=== PATIENT | female | born 1940 | race Caucasian/White ===

== ENCOUNTER 2023-03-04 09:21 | Outpatient (RCR) | payer MEDICARE, BC, SELFPAY | END 2023-03-05 14:09 | disposition home or self-care (01) | LOC: PT 09:21 | PROVIDERS: PCP Internal Medicine; Visit Provider Nurse Practitioner Family | DX: M25.511 Pain in right shoulder (principal); M19.011 Primary osteoarthritis, right shoulder; M75.41 Impingement syndrome of right shoulder | CPT/HCPCS: 97110; 97161 ==

== ENCOUNTER 2025-08-09 12:46 | Outpatient (OUT) | payer MEDICARE, BC, SELFPAY ==
--- OUTSIDE RECORDS SUMMARY | 2025-08-07 13:40 | XMS_ITS | Encounter Summary ---
Author Organization [facility] Address [address] [place] [address] Care Team Providers Care Crime Scene Technician Name Role Phone Lucinda Moreau DO Primary Care Provider [phone] Reason for Visit * ReasonCommentsEar ProblemLT side Hearing loss/ OM/TM Rupture Encounter Details DateTypeDepartmentCare Team (Latest Contact Info)Ldetawfcllx68/01/2025 1:40 PM ESTOffice Visit [facility] [place] [facility] [address] [facility] [address] [place] [address] Karen Mcclendon MD 112 [facility] [address] [place] [address] OME (otitis media with effusion), left (Primary Dx); Barotrauma, initial encounter Social History Tobacco UseTypesPacks/DayYears UsedDateSmoking Tobacco: NeverSmokeless Tobacco: NeverAlcohol UseStandard Drinks/WeekCommentsYes0 (1 standard drink = 0.6 oz pure alcohol)CommentsUnknownSex and Gender InformationValueDate RecordedSex Assigned at BirthNot on fileLegal HsnCmcsmr25/15/2023 6:48 PM EDTGender Identity Not on fileSexual OrientationNot on filedocumented as of this encounter Last Filed Vital Signs Vital SignReadingTime TakenCommentsBlood Pfqzdwjy592/6308/07/2025 1:26 PM EST Dsiwj9511 1:26 PM ESTTemperature--Respiratory Rate--Oxygen Saturation-- Inhaled Oxygen Concentration--Cvkaha18.9 kg (154 lb)08/07/2025 1:26 PM ESTHeight 162.6 cm (5' 4 )08/07/2025 1:26 PM ESTBody Mass Index26.43110/08/2024 1:26 PM EST documented in this encounter Progress Notes * Karen Mcclendon MD - 08/07/2025 1:40 PM EST Subjective Patient ID: Mohinder Tinajero is a 85 y.o. female who presents for Ear Problem (LT side Hearing loss/ OM/TM Rupture) Pt reports left hearing loss since flying one month ago. Had a URI at the time. Had severe left earpain upon descending. No otorrhea. Tx with augmentin and cipro drops. No trouble flying in the past. Leaving for [place] in 3 weeks for the winter Review of Systems All other systems reviewed and are negative. Family History[1] Active Ambulatory Problems Diagnosis Date Noted Arthritis of glenohumeral joint 02/08/2023 Arthritis of left wrist 02/08/2023 Anxiety 07/31/2025 Arrhythmia 07/31/2025 Claudication 07/31/2025 Hypercholesterolemia 07/24/2022 Lower extremity edema 07/31/2025 Nonsmoker 07/31/2025 Osteoarthritis, knee 07/31/2025 BMI 26.0-26.9,adult 07/31/2025 Paroxysmal atrial tachycardia (HCC) 07/20/2020 Paroxysmal tachycardia (HCC) 07/27/2023 PAD (peripheral artery disease) 07/31/2025 RLS (restless legs syndrome) 07/31/2025 Symptomatic varicose veins of both lower extremities 07/31/2025 Resolved Ambulatory Problems Diagnosis Date Noted No Resolved Ambulatory Problems Past Medical History: Diagnosis Date Arthritis Beltrán's cyst Bursitis of hip Ear problems Lumbosacral disc disease Tear of meniscus of knee Surgical History[2] Allergies[3] Medications Ordered Prior to Encounter[4] Objective Last Recorded Vitals Vitals: 08/07/25 1326 BP: 161/63 Pulse: 60 ENT Physical Exam Constitutional Appearance: patient appears well-developed, well-nourished and well-groomed, Head and Face Appearance: head appears normal and face appears atraumatic; Ear Ear Canals: right ear canal normal; left ear canal normal; Tympanic Membranes: right tympanic membrane normal; Nose External Nose: nares patent bilaterally; external nose normal; Internal Nose: septum normal; Oral Cavity/Oropharynx Tongue: normal; Oral mucosa: normal; Hard palate: normal; Soft palate: normal; Tonsils: normal; Neck Neck: neck normal; neck palpation normal; Thyroid: thyroid normal; Respiratory Inspection: breathing unlabored; normal breathing rate; Auscultation: breath sounds are clear; Cardiovascular Inspection: extremities are warm and well perfused; no peripheral edema present; Auscultation: regular rate and rhythm; Assessment/Plan Diagnoses and all orders for this visit: OME (otitis media with effusion), left - fluticasone (Flonase) 50 MCG/ACT nasal spray; 2 sprays on the left twice daily. Shake gently. Before first use, prime pump. After use, clean tip and replace cap. - predniSONE (Deltasone) 20 MG tablet; Take 1 tablet (20 mg) by mouth in the morning and 1 tablet (20 mg) before bedtime. Do all this for 6 days. Barotrauma, initial encounter Pt has OME due to otic barotrauma. Tx with flonase and prednisone. Will need an audio in 2 months and a tube if the effusion fails to resolve. This can be done in [place], or she can return here. I will provide flight precautions. [1] Family History Problem Relation Name Age of Onset Cancer Mother Quiana Savage Cancer Father Shady Savage Cancer Sister Tanya Wagoner Diabetes Brother Shady Savage [2] Past Surgical History: Procedure Laterality Date APPENDECTOMY CATARACT EXTRACTION Bilateral 2010 HYSTERECTOMY 1975 KNEE SURGERY Bilateral [id number] KNEE SURGERY Right menisectomy [address] Bowling KNEE SURGERY Left menisectomy Dr. Guadalupe LAPAROTOMY SALPINGO OOPHORECTOMY MENISCECTOMY MOUTH SURGERY 2020 implant [3] Allergies Allergen Reactions Shellfish Allergy Anaphylaxis Sulfa Antibiotics Rash [4] Current Outpatient Medications on File Prior to Visit Medication Sig Dispense Refill ALPRAZolam (Xanax) 0.25 MG tablet Take 0.125 mg by mouth every 8 (eight) hours if needed aspirin 81 MG EC tablet Take 81 mg by mouth atenolol (Tenormin) 100 MG tablet 1 (one) time each day at the same time. Cholecalciferol (VITAMIN D3 PO) 5,000 Int'l Units/day. ciprofloxacin (Ciloxan) 0.3 % ophthalmic ointment See Instructions, 3.5 gm, Refill(s) 0, 10 drops in left ear twice daily., [facility], 162.5, cm, 07/20/25 10:32:00 EST, Height/Length Dosing, 69.9, kg, 07/20/25 10:32:00 EST, Weight Dosing EPINEPHrine (Epipen) 0.3 MG/0.3ML injection syringe Inject 0.3 mg into the shoulder, thigh, or buttocks Daily as needed. Fiber Adult Gummies 2 g chewable tablet loratadine (Claritin) 10 MG tablet Take 10 mg by mouth LUTEIN PO MAGNESIUM CITRATE PO Methylsulfonylmethane (MSM) 1000 MG tablet Multiple Vitamins-Minerals (Multi For Her 50+) tablet nystatin (Mycostatin) 809026 UNIT/GM powder Apply 1 application topically in the morning and 1 application before bedtime. zoster vaccine-recombinant adjuvanted (Shingrix) 50 MCG/0.5ML vaccine diclofenac sodium 1 % gel Apply 2 g topically in the morning and 2 g at noon and 2 g in the eveningand 2 g before bedtime. (Patient not taking: Reported on 08/07/2025) No current facility-administered medications on file prior to visit. documented in this encounter Plan of Treatment DateTypeDepartmentCare Team (Latest Contact Info)Xjzcjkbyysr77/02/2026 9:30 AM ESTClinical Support [facility] [place] [facility] 112 [facility] 130 [place] [address] Haily Mendez, [facility] [address] [facility] [place] [address] 11/07/2025 11:20 AM ESTOffice Visit [facility] [place] [facility] [address] [facility] [address] [place] [address] Karen Mcclendon MD 112 [facility] 130 [place] [address] 12/12/2025 10:30 AM EDTOffice Visit [facility] [address] [place] [address] Fred Menjivar DO [address] [place] [address] documented as of this encounter Visit Diagnoses Diagnosis OME (otitis media with effusion), left- Primary Barotrauma, initial encounter documented in this encounter Care Teams Team MemberRelationshipSpecialtyStart DateEnd Date Lucinda Moreau DO [facility] 9[facility] [address] [place] [address] PCP - GeneralInternal Kgztykfl30/1/25documented as of this encounter
--- OUTSIDE RECORDS SUMMARY | 2025-08-09 12:49 | XMS_ITS | Clinical Summary ---
Author Organization [employer] [facility] tem Address [id number] [place] [address] Care Team Providers Care Farm Demonstrator Name Role Phone Unavailable Primary Care Provider Unavailabl e Allergies Active AllergyReactionsCriticalityNoted DateCommentsShellfish DerivedAnaphylaxis High08/15/2012Sulfa (Sulfonamide Antibiotics)08/15/2012 Medications MedicationSigDispense QuantityRefillsLast FilledStart DateEnd DateStatus VIT D3-VIT C-WAWGQYLSK-QHZO ORAL Take 50,000 Units by mouth once a week.Active magnesium oxide (MAGOX) 400 mg tablet Take 1 tablet (400 mg total) by mouth in the morning.Active EPINEPHrine (EPIPEN) 0.3 mg/0.3 mL auto-injector Inject 0.3 mL (0.3 mg total) into the appropriate muscle as needed (as needed). 1 each 06/02/2023ctive ALPRAZolam (XANAX) 0.25 mg tablet Indications:AnxietyTake 0.5 tablets (0.125 mg total) by mouth every 8 (eight) hours as needed for anxiety. 15 tablet 07/27/2023ctive atenoloL (TENORMIN) 100 mg tablet TAKE ONE TABLET BY MOUTH ONCE DAILY 90 tablet ctive Active Problems ProblemNoted DateDiagnosed DateParoxysmal sbbkklrgmwy97/20/2023 Mfzmnhtqwbxtfxrzgqjt49/17/2022aroxysmal atrial dzbxltuayie51/13/2020Anxiety Immunizations ImmunizationAdministration DatesNext NlmG7C8 Inj Preservative Free10/31/2009 Hepatitis A011/30/2017,06/01/2017Influenza (IM) Preservative Free06/28/2014 Influenza, High-dose, Dgocwvjxhwzo36/02/2021Influenza, Im Trivalent Preservative 07/04/2013Influenza, Injectable, Ztjlagjycqip02/20/2015Influenza, Trivalent, Npjthtadmh31/11/2017,07/07/2016Influenza, Umowlsiapoq85/09/2020,05/26/2019, 06/22/2018,06/17/2017Pneumococcal Conjugate 13-Wulfso8802/11/2017Pneumococcal Rvhubkbryfdawc49/14/2017,06/18/2011Tdap06/01/2017,11/06/2015Zoster Vaccine Cafcocoupyd95/31/2020,07/07/2020Zoster, unspecified cccogxfgyrh01/31/2020 Family History Medical HistoryRelationNameCommentsStomach cancerFatherCancerMotherGALLBLADDER DementiaMotherBreast cancerSisterEndometrial cancerSisterlumpectomy needed RelationNameStatusCommentsFatherMotherSister Social History Tobacco UseTypesPacks/DayYears UsedDateSmoking Tobacco: NeverSmokeless Tobacco: Never Tobacco Cessation:Counseling Given: No Alcohol UseStandard Drinks/WeekCommentsYes0 (1 standard drink = 0.6 oz pure alcohol)Social Connection and Isolation PanelAnswerDate RecordedIn a typical week, how many times do you talk on the phone with family, friends, or neighbors?More than three times a week07/20/2021How often do you get together with friends or relatives?Once a week07/20/2021How often do you attend voodoo or gnosticism services?More than 4 times per year1Do you belong to any clubs or organizations such as voodoo groups, unions, fraternal or athletic noemi ups, or school groups?Yes07/20/2021How often do you attend meetings of the clubs or organizations you belong to?More than 4 times per year07/20/2021re you , , , , never , or living with a partner? Living with gtqqtwl6007/20/2021UDIT-CAnswerDate RecordedQ1: How often do you have a drink containing alcohol?4 or more times a week07/20/2021Q2: How many drinks containing alcohol do you have on a typical day when you are drinking?1 or 2 07/20/2021Q3: How often do you have six or more drinks on one occasion?Never 07/20/2021Overall Financial Resource Strain (CARDIA)AnswerDate RecordedHow hard is it for you to pay for the very basics like food, housing, medical care, and heating?Not hard at all07/20/2021HQ-2AnswerDate RecordedTotal Tmhmr016 [facility] [place] of Occupational Health - Occupational Stress Questionnaire AnswerDate RecordedDo you feel stress - tense, restless, nervous, or anxious, or unable to sleep at night because yourmind is troubled all the time - these days? Not at all07/20/2021xercise Vital SignAnswerDate RecordedOn average, how many days per week do you engage in moderate to strenuous exercise (like a brisk wal k)?3 days07/20/2021On average, how many minutes do you engage in exercise at this level?30 min07/20/2021RAPARE - TransportationAnswerDate RecordedIn the past 12 months, has lack of transportation kept you from medical appointments or from getting medications?No07/20/2021In the past 12 months, has lack of transportation kept you from meetings, work, or from getting things needed for daily living?No07/20/2021hildcareAnswerDate RecordedDo problems getting child development associate teacher make it difficult for you to work or study?No07/20/2021mploymentAnswerDate RecordedDo you need help finding a local career center and/or a training program?No07/20/2021Hunger ScreeningAnswerDate RecordedWithin the past 12 months we worried whether our food would run out before we got money to buy more.Never True07/27/2023Within the past 12 months the food we bought just didn't last and we didn't have money to get more.Never True07/27/2023urpose - LifeAnswerDate RecordedI have a purpose and direction in my life.Strongly Agree07/20/2021 EducationAnswerDate RecordedWhat is the highest level of school you have completed or the highest degree you have received?Bachelor's degree (e.g., BA, AB, BS)07/20/2021CommentsNoSex and Gender InformationValueDate Recorded Sex Assigned at BirthNot on fileLegal QjiSeyxqz29/04/2015 11:58 AM EDTGender IdentityNot on fileSexual OrientationNot on file Last Filed Vital Signs Vital SignReadingTime TakenCommentsBlood Mwhutrhs023/5807/27/2023 1:38 PM EST Nttql667907/27/2023 1:38 PM IXRSofowtribjw89.9 ??C (96.7 ??F)07/22/2021 1:41 PM ESTRespiratory Rate--Oxygen Saturation--Inhaled Oxygen Concentration--Mdqaip90.6 kg (160 lb)07/27/2023 1:38 PM MEIVwyieb979.6 cm (5' 4 )07/27/2023 1:38 PM EST Body Mass Index27.4607/27/2023 1:38 PM EST Plan of Treatment Health MaintenanceDue DateLast DoneCommentsRSV ( or age 60+ yrs) (1 - 1- dose 75+ series)02/07/2016Depression Dyyrfhqwe54Fall Risk Coocizjls16Medicare Annual Wellness Visit, 07/24/2022, 07/22/2021, Additional history existsTobacco Otbigzwdl46/20/2024 07/27/2023OVID-19 Vaccine ( season), 06/02/2022, 02/12/2022, Additional history existsInfluenza Awdtxdw00, 06/02/2022, 06/08/2021, Additional history existsDTaP,Tdap and Td Vaccines (3 - Td or Tdap)7006/01/2017, 11/06/2015Zoster (Shingles) VaccineCompleted 09/06/2020, 07/07/2020, 07/07/2020 Medical Devices Not on file Insurance Care Teams Team MemberRelationshipSpecialtyStart DateEnd Date Erin Celaya RN CCM Nurse - SignalLam02/10/24
--- OUTSIDE RECORDS SUMMARY | 2025-08-09 12:49 | XMS_ITS | Encounter Summary ---
Author Organization [facility] Address [address] [place] [address] Care Team Providers Care Collar Cutter Name Role Phone Lucinda Moreau DO Primary Care Provider [phone] Encounter Details DateTypeDepartmentCare Team (Latest Contact Info)Llmperpeicz91/01/2025amboo flowsheet [facility] [place] [facility] [address] [place] [address] [place] [address] Karen Mcclendon MD [address] [place] [address] [place], [place] [phone] Social History Tobacco UseTypesPacks/DayYears UsedDateSmoking Tobacco: NeverSmokeless Tobacco: NeverAlcohol UseStandard Drinks/WeekCommentsYes0 (1 standard drink = 0.6 oz pure alcohol)CommentsUnknownSex and Gender InformationValueDate RecordedSex Assigned at BirthNot on fileLegal SgyQeiyqv34/15/2023 6:48 PM EDTGender IdentityNot on fileSexual OrientationNot on filedocumented as of this encounter Plan of Treatment DateTypeDepartmentCare Team (Latest Contact Info)Rdynxdmhdqs23/02/2026 9:30 AM ESTClinical Support [facility] [place] [facility] [address] [place] [address] [place] [address] Haily [place], [facility] [address] [place] [address] 11/07/2025 11:20 AM ESTOffice Visit [facility] [place] [facility] [address] [facility] [address] [place] [address] Karen Mcclendon MD [address] [place] [address] [place] [address] 12/12/2025 10:30 AM EDTOffice Visit [facility] [address] [place] [address] Fred Menjivar DO [address] [place] [address] documented as of this encounter Visit Diagnoses Not on filedocumented in this encounter Care Teams Team MemberRelationshipSpecialtyStart DateEnd Date Lucinda Moreau DO [address] [place] [address] [address] [place] [id number] PCP - GeneralInternal Qqfwmgmk92/1/25documented as of this encounter
--- OUTSIDE RECORDS SUMMARY | 2025-08-09 12:49 | XMS_ITS | Clinical Summary ---
Author Organization [facility] Address [address] [place] [address] Care Team Providers Care Laboratory Director Name Role Phone Unavailable Primary Care Provider Unavailabl e Allergies Active AllergyReactionsCriticalityNoted DateCommentsShellfish DerivedAnaphylaxis High06/20/2021ulfa (Sulfonamide Antibiotics)Rash05/20/2018 Medications MedicationSigDispense QuantityRefillsLast FilledStart DateEnd DateStatus atenolol (TENORMIN) 100 mg tablet TAKE 1 TABLET (100 MG TOTAL) BY MOUTH DAILY.05/15/2021ctive triamcinolone acetonide (KENALOG) 0.1 % cream APPLY TO RIGHT EYELIDS THREE TIMES A DAY FOR 7 DAYS03/20/2021ctive EPINEPHrine (EPIPEN) 0.3 mg/0.3 mL auto-injector Inject 0.3 mg intramuscularly at bedtime as needed.Active ALPRAZolam (XANAX) 0.25 mg tablet Take 0.125 mg by mouth three times daily as needed.07/20/2020Active Active Problems No known active problems Social History Tobacco UseTypesPacks/DayYears UsedDateSmoking Tobacco: Never AssessedArea Deprivation IndexAnswerDate RecordedNational Score (1-100), lower number is lower riskNot on file06/20/2021tate Score (1-10), lower number is lower riskNot on file06/20/2021ata from: https://www.neighborhoodatlas.medicine.[facility].edu/. Last address used for calculationNot on file06/20/2021CommentsUnknownSex and Gender InformationValueDate RecordedSex Assigned at BirthNot on fileLegal PhxIwqkju67/16/2018 2:09 PM EDTGender IdentityNot on fileSexual OrientationNot on file Plan of Treatment Health MaintenanceDue DateLast DoneCommentsAnxiety Vviloxwxa61/02/1959Depression Fjiklprdp92/02/1959Bone Density Ltpazwist80/02/2006RSV Vaccine (1 - 1-dose 75+ series)02/07/2016Diabetes Xpfbgoawd67/12/2019, 03/22/2018Advance Directive Fxzidaveij37/01/2025Covid-19 Vaccine (2024- season)2025 Influenza Vaccine (#1)/05/2020, 05/26/2019, 06/22/2018, Additional history existsDTaP,Tdap,Td Vaccine (3 - Td or Tdap), 11/06/2015Pneumococcal Vaccine: 50+Zthrrrscx03/14/2017, 02/11/2017, 06/18/2011 Shingrix OlwzlnsYwtqsqvzk40/31/2020, 07/07/2020 Insurance
--- OUTSIDE RECORDS SUMMARY | 2025-08-09 12:49 | XMS_ITS | Encounter Summary ---
Author Organization [facility] Address [address] [place] [place] [address] Care Team Providers Care Industrial Commercial Groundskeeper Name Role Phone Lucinda Moreau DO Primary Care Provider [phone] Encounter Details DateTypeDepartmentCare Team (Latest Contact Info)Bgfbgrzyrzb12/01/2025Travel Social History Tobacco UseTypesPacks/DayYears UsedDateSmoking Tobacco: NeverSmokeless Tobacco: NeverAlcohol UseStandard Drinks/WeekCommentsYes0 (1 standard drink = 0.6 oz pure alcohol)CommentsUnknownSex and Gender InformationValueDate RecordedSex Assigned at BirthNot on fileLegal MnxPuvhtr31/15/2023 6:48 PM EDTGender Identity Not on fileSexual OrientationNot on filedocumented as of this encounter Plan of Treatment DateTypeDepartmentCare Team (Latest Contact Info)Nccrnfrdrui18/02/2026 9:30 AM ESTClinical Support [facility] [place] [facility] [address] [place] [address] [place] [phone] Haily Mendez, [facility] [address] [place] [address] 11/07/2025 11:20 AM ESTOffice Visit [facility] [place] [facility] [address] [place] [address] [place] [phone] Karen Mcclendon MD [address] [place] [address] [place] [address] 12/12/2025 10:30 AM EDTOffice Visit [facility] [address] [place] [address] Fred Menjivar DO [address] [place] [address] documented as of this encounter Visit Diagnoses Not on filedocumented in this encounter Care Teams Team MemberRelationshipSpecialtyStart DateEnd Date Lucinda Moreau DO [address] [place] [address] [address] [place] [address] PCP - GeneralInternal Yfitikdt74/1/25documented as of this encounter
--- OUTSIDE RECORDS SUMMARY | 2025-08-09 12:49 | XMS_ITS | Patient Health Record ---
Author Organization [facility] Billing Info Address [address] [place] [address] Care Team Providers Care Gis Software Developer Name Role Phone SHAQ SELF III Unavailable Unavailable Allergies Allergen (clinical drug ingredient) Drug/Non Drug Allergy documented on EMR Reaction Allergy Type Onset Date Status SHELLFISHUnknownDrug AllergyActiveSulfaUnknownDrug AllergyActive Reason For Referral No Information Medications Medication SIG (Take, Route, Frequency, Duration) Notes Start Date End Date Status Azithromycin 250 MG [address] day, then 1 tablet daily for 4 days Orally Once a day for 5 day(s) 1ActivePredniSONE 20 MG2 tablet Orally Once a day for 5 day(s) 1ActiveAlbuterol Sulfate HFA 108 (90 Base) MCG/ACT2 puffs as needed Inhalation every 6 hrs for 30 day(s)1ActiveAlprazolam 0.25 MG(Schedule IV Drug) Oral for 30ActiveShingrix 50 MCG/0.5MLIntramuscular for 1ActiveAtenolol 100 MGOral for 90Active Social History Tobacco Status: Question Answer Notes Patient is a non tobacco user Plan Of Treatment Pending Test Test Name Order Date BREATHING TREATMENTS, NEBULIZER (00577) 01/11/2021 XRAY-CHEST, 2 VIEWS, FRONTAL & LATERAL ( 04208) [facility] 01/11/2021 Insurance Providers Payer Name Payer Address Payer Phone Subscriber Number Group Number Insured Name Patient Relationship to Insured Coverage Start Date Coverage End Date MED[place]ARE [place] PART B [address] [employer] [place]RE [place] [id number] Derrick Tinajeroelf - patient is the /S [facility] [address] [place], [place] [id number], Jean Self - patient is the [id number] Medications Administered Medication Instructions Date of Administration Dosage Notes zMethylprednisolone Sodium Succinate 125 mg (A-Methapred, Solu-MEDROL) 1125 [employer] 75859-777-81 Medical (General) History Medical History History ICD Code Arthritis Surgical History Surgery Date(Month/Year) appendectomy hysterectomymastectomy
--- OUTSIDE RECORDS SUMMARY | 2025-08-09 12:49 | XMS_ITS | Clinical Summary ---
Author Organization [facility] Address [address] [place] [address] Care Team Providers Care General Foreman Name Role Phone Lucinda Moreau DO Primary Care Provider [phone] Allergies Active AllergyReactionsCriticalityNoted DateCommentsShellfish AllergyAnaphylaxis High08/15/2012Sulfa YmxhtpvouifDtdcEfe76/09/2012 Medications MedicationSigDispense QuantityRefillsLast FilledStart DateEnd DateStatus Cholecalciferol (VITAMIN D3 PO) 5,000 Int'l Units/day.Active LUTEIN PO Active Fiber Adult Gummies 2 g chewable tablet Active atenolol (Tenormin) 100 MG tablet 1 (one) time each day at the same time.Active Methylsulfonylmethane (MSM) 1000 MG tablet Active Multiple Vitamins-Minerals (Multi For Her 50+) tablet Active MAGNESIUM CITRATE PO Active diclofenac sodium 1 % gel Apply 2 g topically in the morning and 2 g at noon and 2 g in the evening and 2 g before bedtime.Active EPINEPHrine (Epipen) 0.3 MG/0.3ML injection syringe Inject 0.3 mg into the shoulder, thigh, or buttocks Daily as needed.Active loratadine (Claritin) 10 MG tablet Take 10 mg by mouth01/25/2024ctive aspirin 81 MG EC tablet Take 81 mg by mouth05/03/2024ctive ALPRAZolam (Xanax) 0.25 MG tablet Take 0.125 mg by mouth every 8 (eight) hours if symybf9407/27/2023ctive zoster vaccine-recombinant adjuvanted (Shingrix) 50 MCG/0.5ML vaccine Active ciprofloxacin (Ciloxan) 0.3 % ophthalmic ointment See Instructions, 3.5 gm, Refill(s) 0, 10 drops in left ear twice daily., [facility], 162.5, cm, 07/20/25 10:32:00 EST, Height/Length Dosing, 69.9, kg, 07/20/25 10:32:00 EST, Weight Mdlfec535Active nystatin (Mycostatin) 390009 UNIT/GM powder Apply 1 application topically in the morning and 1 application before bedtime. 5Active fluticasone (Flonase) 50 MCG/ACT nasal spray Indications:OME (otitis media with effusion), left2 sprays on the left twice daily. Shake gently. Before first use, prime pump. After use, clean tip and replace cap. 48 g 5Active predniSONE (Deltasone) 20 MG tablet Indications:OME (otitis media with effusion), leftTake 1 tablet (20 mg) by mouth in the morning and 1 tablet (20 mg) before bedtime. Do all this for 6 days. 12 tablet 5Active Active Problems ProblemNoted DateDiagnosed FkemTpjfjly78/24/4145Gzdwrpsxcu30/24/2025laudication 07/31/2025Lower extremity edema07/31/20253053Jftqpnspd30/24/2025Osteoarthritis, knee 07/31/2025MI 26.0-26.9,adult07/31/2025PAD (peripheral artery disease)07/31/2025 RLS (restless legs syndrome)07/31/2025Symptomatic varicose veins of both lower sekqtvkweez96/24/2025Paroxysmal ruysczwxrhp98/20/2023rthritis of glenohumeral joint02/08/2023rthritis of left wrist02/08/20237796Cjndqmrhbmbkggmblwtv29/17/2022 Paroxysmal atrial ukpagnqruxq90/13/2020 Encounters DateTypeDepartmentCare GykaPffimrpzbmw27/01/2025 1:40 PM ESTOffice Visit [facility] [address] [place] [address] Karen Mcclendon MD OME (otitis media with effusion), left (Primary Dx); Barotrauma, initial zbcaocwuz83/01/2025amboo flowsheet [facility] [address] [place] [address] Karen Mcclendon MD 08/07/20252291Vyenmw59/23/2025 10:15 AM EDTOffice Visit [facility] [address] [facility] [place] [phone] Fred Menjivar DO Primary osteoarthritis of right knee (Primary Dx); Acute pain of right knee05/30/2025 8:10 AM EDTAncillary Procedure [facility] [address] [facility] [address] [facility] [address] 05/30/2025Travelfrom Last 3 Months Immunizations ImmunizationAdministration DatesNext DueInfluenza, High-dose Seasonal, Quadrivalent, Preservative Free06/08/2021Influenza, injectable, quadrivalent, preservative free05/10/2018Influenza, seasonal, injectable, preservative free 05/08/2019Pneumococcal Polysaccharide OTNU938809/20/2016 Family History Medical HistoryRelationNameCommentsDiabetesBrotherWalter Antonio SavageCancer FatherWalter HusseinCancerMotherElizabe HusseinCancerSisterMarie CiaranRelation NameStatusCommentsBrotherWalter Antonio SavageFatherUnited [facility] HusseinDeceasedMother Quianatuan SavageDeceasedSisterMarisegun Wagoner Social History Tobacco UseTypesPacks/DayYears UsedDateSmoking Tobacco: NeverSmokeless Tobacco: Never Tobacco Cessation:Counseling Given: Not Answered Alcohol UseStandard Drinks/WeekCommentsYes0 (1 standard drink = 0.6 oz pure alcohol)CommentsUnknownSex and Gender InformationValueDate RecordedSex Assigned at BirthNot on fileLegal LqiFjqknh79/15/2023 6:48 PM EDTGender Identity Not on fileSexual OrientationNot on file Last Filed Vital Signs Vital SignReadingTime TakenCommentsBlood Whzvgkrw914/6312/09/2024 1:26 PM EST Amqfj899208/07/2025 1:26 PM ESTTemperature--Respiratory Rate--Oxygen Saturation-- Inhaled Oxygen Concentration--Sjxque71.9 kg (154 lb)08/07/2025 1:26 PM ESTHeight 162.6 cm (5' 4 )08/07/2025 1:26 PM ESTBody Mass Index26.43110/08/2024 1:26 PM EST Plan of Treatment DateTypeDepartmentCare Team (Latest Contact Info)Dptemcdylkd84/02/2026 9:30 AM ESTClinical Support [facility] [address] [facility] [address] [place] [phone] Haily Mendez, [facility] [address] [facility] [place] [address] 11/07/2025 11:20 AM ESTOffice Visit [facility] [address] [facility] [address] [place] [address] Karen Mcclendon MD [address] [facility] [address] [place] [address] 12/12/2025 10:30 AM EDTOffice Visit [facility] [address] [place] [phone] Fred Menjivar DO [address] [place], [place] [id number] Health MaintenanceDue DateLast DoneCommentsCOVID-19 Vaccine ( season) /, 07/04/2024, 05/24/2023, Additional history existsInfluenza Vaccine (#1)51, 05/24/2023, 06/02/2022, Additional history existsPneumococcal Vaccine: 65+ PaimgKbaxtapko17/14/2017, 02/11/2017, 06/18/2011 Procedures Procedure NamePriorityDate/TimeAssociated DiagnosisCommentsPR ARTHROCENTESIS ASPIR&/INJ MAJOR JT/BURSA W/O ZVAhkdixm02/23/2025 10:12 AM EDT Primary osteoarthritis of right knee XR KNEE 3 VIEWS MKJNXAuycfct37/23/2025 8:07 AM EDT Primary osteoarthritis of right knee from Last 3 Months Results * DE ARTHROCENTESIS ASPIR&/INJ MAJOR JT/BURSA W/O US (05/30/2025 10:12 AM EDT) Dana Valenzuela MA - 05/30/2025 10:12 AM EDT Dana Andrade MA 05/30/2025 11:33 AM L Inj/Asp: R knee on 05/30/2025 10:12 AM Indications: diagnostic evaluation Details: 22 G needle Medications: 30 mg cross-linked hyaluronate 30 MG/3ML Outcome: tolerated well, no immediate complications Consent was given by the patient. Authorizing ProviderResult TypeResult [facility]/BEDSIDE ORDERABLESFinal Result * XR knee 3 views right (05/30/2025 8:07 AM EDT)Anatomical RegionLaterality ModalityLower Extremities, KneeRightRadiographic ImagingSpecimen (Source) Anatomical Location / LateralityCollection Method / VolumeCollection Time Received Time Narrative 05/30/2025 11:33 AM EDT Imaging Result: ??Multiple view x-ray of the right knee shows advanced grade 3 early grade 4 degenerative changes of the right knee. ??Lateral compartment worse than medial compartment. ?? No fracture, tumor, dislocation, infection seen. Authorizing ProviderResult TypeResult Trisha HERNANDEZMG XR PROCEDURES Final Result from Last 3 Months Insurance Care Teams Team MemberRelationshipSpecialtyStart DateEnd Date Lucinda Moreau DO [address] [place] [id number] PCP - GeneralInternal Owgvkoxh74/1/25
--- NOTE | 2025-08-09 12:50 | MM_ITS ---
Patient Name: GIDEON RICHMOND MR#: [id number] : 1940 Exam Date: 08/09/2025 Ordering Doctor: NON-STAFF PHYSICIAN RADIOLOGY REPORT PROCEDURE: MM TOMOSYNTHESIS SCREENING BI COMPARISON: MG MAMM SCREEN 3D WON CAD, 08/06/2022. MG MAMM SCREEN 3D WON CAD, 08/20/2021. MG MAMM SCREEN 3D WON CAD, 08/16/2020. INDICATIONS: Screening mammogram Calculator Name NCI Breast Cancer Risk Assessment Tool 5 Year Breast Cancer Risk 1.10% Lifetime Breast Cancer Risk 1.30% Personal Breast Cancer No Personal Ovarian Cancer No Treatments None Family Cancers Mother with bile duct cancer at age 80; Father with stomach cancer at age 65. LOCATION: [facility] BREAST COMPOSITION: There are scattered areas of fibroglandular density. FINDINGS: RIGHT BREAST: No significant suspicious finding. LEFT BREAST: No significant suspicious finding. Benign-appearing calcifications are present. There is a similar focal asymmetry. DIAGNOSTIC CATEGORY 2--BENIGN FINDING. NO CHANGE FROM COMPARISON. RECOMMENDATIONS: ROUTINE MAMMOGRAM AND CLINICAL EVALUATION IN 12 MONTHS. Dictated by: Gab Ricardo MD on 08/09/2025 at 15:57 Approved by: Gab Ricardo MD on 08/09/2025 at 15:59
== END 2025-08-09 12:47 | disposition home or self-care (01) ==
LOC: RAD 12:46
PROVIDERS: PCP Internal Medicine
DX: E28.39 Other primary ovarian failure (principal); Z12.31 Encounter for screening mammogram for malignant neoplasm of breast; Z80.0 Family history of malignant neoplasm of digestive organs; Z80.8 Family history of malignant neoplasm of other organs or systems; M85.88 Other specified disorders of bone density and structure, other site
CPT/HCPCS: 77063; 77067; 77080